=== PATIENT | female | born 1975 | race Caucasian/White ===

== ENCOUNTER 2019-07-20 19:05 | Emergency (ER) | payer OTHER ==
--- NOTE | 2019-07-20 20:02 | PDOC ---
History of Present Illness - General Chief Complaint: Nausea/Vomiting Stated Complaint: VOMITING Time Seen by Provider: 07/20/19 19:46 - History of Present Illness Initial Comments: Ms. Sow is a 43 y/o female presenting today with epigastric abdominal pain, feeling warm, numbness in the hands and cheeks. Reports that she was having an abdominal MRI with contrast today when she started feeling uncomfortable, having abdominal discomfort, and feeling numb. Reports nausea, but no vomiting. Denies chest pain/shortness of breath. She has had CT and MRI scans with contrast before, but had an allergic reaction the most recent time, though today's was more abrupt in onset. Denies fever/ chills. Denies difficulty breathing, denies throat swelling, denies tongue swelling. Past History - Past Medical History Allergies/Adverse Reactions: Allergies Allergy/AdvReac Type Severity Reaction Status Date / Time No Known Allergies Allergy Unverified 07/20/19 19:16 COPD: No - Psycho Social/Smoking Cessation Hx Smoking History: Never smoked Have you smoked in the past 12 months: No Information on smoking cessation initiated: No Hx Alcohol Use: No Drug/Substance Use Hx: No Review of Systems - Review of Systems Comments:: GENERAL/CONSTITUTIONAL: No fever or chills. No weakness._ HEAD, EYES, EARS, NOSE AND THROAT: No change in vision. No change in hearing. No sore throat._ CARDIOVASCULAR: No chest pain or shortness of breath_ RESPIRATORY: Denies cough, hemoptysis_ GASTROINTESTINAL: Reports abdominal discomfort and nausea. GENITOURINARY: No dysuria, frequency, or change in urination._ MUSCULOSKELETAL: No joint or muscle swelling or pain. No neck or back pain. Reports mild numbness in the hands. SKIN: No rash_ NEUROLOGIC: No headache, vertigo, loss of consciousness, or change in strength/ sensation._ ENDOCRINE: No increased thirst. No abnormal weight change_ HEMATOLOGIC/LYMPHATIC: No anemia, easy bleeding, or history of blood clots._ ALLERGIC/IMMUNOLOGIC: No hives. *Physical Exam - Vital Signs Last Vital Signs Temp Pulse Resp BP Pulse Ox 98.5 F 101 H 16 141/70 99 07/20/19 19:13 07/20/19 19:13 07/20/19 19:13 07/20/19 19:13 07/20/19 19:13 - Physical Exam GENERAL: Awake, alert, and oriented to person/place/time, in no acute distress_ HEAD: No signs of trauma, normocephalic, atraumatic _ EYES: PERRLA, EOMI, sclera anicteric, conjunctiva clear_ ENT: Hearing grossly normal, nares patent, oropharynx clear without exudates. No uvular deviation. Moist mucosa_ NECK: Normal ROM, supple, no lymphadenopathy, JVD, or masses_ LUNGS: No distress, speaks in full sentences, clear to auscultation bilaterally _ HEART: Regular rate and rhythm, normal S1 and S2, no murmurs appreciated, peripheral pulses normal and equal bilaterally._ ABDOMEN: Soft, mild epigastric TTP, normoactive bowel sounds. No guarding, no rebound. No masses_ EXTREMITIES: Normal inspection, Normal range of motion, no edema. No clubbing or cyanosis. Professor Of Spanish strength 5/5 bilaterally. NEUROLOGICAL: Cranial nerves II through XII grossly intact. Normal speech, normal gait, no focal sensorimotor deficits _ SKIN: Warm, Dry, normal turgor. No rash, hives, or other skin lesions noted. Medical Decision Making - Medical Decision Making 07/20/19 20:04 43F presenting with nausea, abdominal pain, numbness, after MRI with contrast. Hx of prior CT w/ contrast allergic reaction years ago. 07/20/19 21:04 Patient reassessed. Reports much improvement since her time at MRI. Plan to d/c home, with strict return precautions and benadryl if allergic symptoms occur. Discharge - Discharge Information Problems reviewed: Yes Clinical Impression/Diagnosis: Nausea Condition: Stable Disposition: HOME - Admission No - Follow up/Referral Referrals: Lida Rodríguez MD [Primary Care Provider] - - Patient Discharge Instructions Additional Instructions: Please rest and hydrate yourself at home. Please take Benadryl at home if you experience any allergic symptoms including itchiness, rash, throat swelling. If you experience any new, worsening or concerning symptoms, including difficulty breathing, feeling of throat closing, severe abdominal pain, severe vomiting or blood in the vomit, blood in the stool, chest pain, shortness of breath, or any other concerns, please return to the emergency department. - Post Discharge Activity
--- NOTE | 2019-07-20 21:14 | PDOC ---
Attending Attestation - Resident Resident Name: Vinicio Velasco - ED Attending Attestation I have performed the following: I have examined & evaluated the patient, The case was reviewed & discussed with the resident, I agree w/resident's findings & plan, Exceptions are as noted - HPI HPI: 07/20/19 22:07 See resident HPI - Physicial Exam PE: 07/20/19 22:07 Agree with exam as documented by resident - Medical Decision Making 07/20/19 22:09 43F here after feeling epigastric ab px and flushed in torso, face and b/l UE after contrast abdominal MRI today. States something similar happened in the past after a contrast CT. MRI today was for workup of incidentally found hepatic cysts At time of interview, pt was asymptomatic, with benign exam, w/o intervention DC patient f/u pcp f/u GI as scheduled.
== END 2019-07-20 21:15 | disposition home or self-care (01) ==
LOC: JER 19:05
DX: R11.0 Nausea (principal)
CPT/HCPCS: 99282-25

== ENCOUNTER 2021-04-17 04:59 | Day surgery (SDC) | payer OTHER ==
[2021-04-14 12:26] VITALS: BMI 38.0
[2021-04-17 11:27] VITALS: TEMP 98.7
[2021-04-17 13:27] LABS: CALCIUM 8.6 mg/dL (8.5-10.1)
[2021-04-17 13:28] LABS: BLOOD UREA NITROGEN 9.2 mg/dL (7-18); MAGNESIUM 1.9 mg/dL (1.8-2.4)
[2021-04-17 13:31] LABS: CREATININE 0.7 mg/dL (0.55-1.3); PHOSPHOROUS 3.6 mg/dL (2.5-4.9)
[2021-04-17 13:55] VITALS: BP 118/65; PULSE 50
== END 2021-04-17 13:56 | disposition home or self-care (01) ==
LOC: JASU-ENDO 04:59
PROVIDERS: ATTEND Internal Medicine Gastroenterology
PROC: 0DJ08ZZ Inspection of Upper Intestinal Tract, Via Natural or Artificial Opening Endoscopic (ICD-10-PCS; principal; 2021-04-17 11:00)
DX: R10.9 Unspecified abdominal pain (principal); I49.3 Ventricular premature depolarization; Z53.8 Procedure and treatment not carried out for other reasons
CPT/HCPCS: 36415; 80048; 83735; 84100; 93005; 93010